=== PATIENT | female | born 1975 | race Hispanic/Latino ===

== ENCOUNTER 2018-02-13 02:07 | Emergency (ER) | payer OTHER ==
[~2018-02-13] VITALS: Ht 157.5 cm; Wt 73.5 kg
[~2018-02-13 02:07] MED LIST: IRON325 M1 PO; NORA-BE0.35 MG PO; TYLENOL WITH C1 EACH PO; ULTRAM 50MG50 MG PO
--- OUTSIDE RECORDS SUMMARY | 2018-02-13 02:10 | XMS REPORT | Summary of Care ---
Author Author LIU MOFFETT N.P. Organization Unknown Address [facility] Phone Unavailable Care Team Providers Care Stonecutter Assistant Name Role Phone LIU MOFFETT N.P. Unavailable Unavailable Unavailable Unavailable Functional Status Name Dates Details Functional status health issues are not documented Status: Name Dates Details Cognitive status health issues are not documented Status: Problems Name Dates Details Encounter for insertion of mirena IUD (V25.11, Z30.430) Status: Active Menorrhagia (626.2, N92.0) Status: Active IUD check up (V25.42, Z30.431) Status: Active Medications Name Dates Details PredniSONE 20 MG Oral Tablet * Start : 01-May-2017 Active Vitamin B12 TABS * Refills: 0 Active Xarelto 20 MG Oral Tablet * Refills: 0 * Start : 01-May-2017 Active Mirena 20 MCG/24HR Intrauterine Intrauterine Device * Refills: 0 LIU MOFFETT N.P. * Start : 29-May-2017 Active Allergies and Adverse Reactions Name Dates Details Demerol TABS (Allergy) Status: Active Rocephin (Allergy) Status: Active Sulfa Drugs (Allergy) Status: Active tramadol (Allergy) Status: Active vancomycin (Allergy) Status: Active Past Medical History Name Dates Details History of anemia (V12.3, Z86.2) Status: Resolved History of Arthritis (716.90, M19.90) Status: Resolved History of blood clots (V12.51, Z86.718) Status: Resolved History of blood transfusion (V15.89, Z92.89) Status: Resolved History of Common migraine without aura (346.10, G43.009) Status: Resolved History of deep venous thrombosis (V12.51, Z86.718) Status: Resolved History of pulmonary embolism (V12.55, Z86.711) Status: Resolved Procedures Procedure Dates Details History of Cholecystectomy Completed History of Tubal Ligation Completed History of knee arthroscopy Completed History of Maurice-en-Y gastric bypass Completed History of section Completed History of exploratory laparotomy Completed History of hernia repair Completed History of abdominoplasty Completed Immunization Name Dates Details Immunizations not documented Family History Name Dates Details Family history of depression (V17.0, Z81.8) Status: Active Social History Name Dates Details - Status: Name Dates Details Never smoker Vital Signs Date Test Result Details [id number] BP Systolic 104 mm[Hg] Status: Comments: Location: LUE; Position: Sitting BP Diastolic 60 mm[Hg] Status: Comments: Location: LUE; Position: Sitting Height 62 in Status: Weight 178.4 lb Status: Body Mass Index Calculated 32.63 kg/m2 Status: Body Surface Area Calculated 1.82 m2 Status: [id number] BP Systolic 110 mm[Hg] Status: Comments: Location: RUE; Position: Sitting BP Diastolic 68 mm[Hg] Status: Comments: Location: RUE; Position: Sitting Height 62 in Status: Weight 170 lb Status: Body Mass Index Calculated 31.09 kg/m2 Status: Body Surface Area Calculated 1.78 m2 Status: Results Date Description Value Details [id number] Tobacco Use Screening Completed DONE Plan of Care Name Dates Details Planned Observations Planned Goals not documented Planned Encounters Appointment; DEANN ELMORE M.D. On: 11-Jul-2017 10:50 Interventions Provided Discussion/Summary* Pt desires to continue with mirena for now to see if future periods get any swatch maker. F/u 6 weeks with [facility] to discuss periods or ablation if no improvement. Instructions Name Dates Details Instructions not documented Encounters Appointment; DEANN ELMORE M.D. Encounter Diagnosis: Problem not documented On: 01-May-2017 13:00 Appointment; LIU MOFFETT NP Encounter Diagnosis: Problem not documented On: 29-May-2017 10:30
--- NOTE | 2018-02-13 02:52 | Diagnostic Imaging Report ---
CHEST 2 VIEWS, Technique: CHEST 2 VIEWS Comparison: None Clinical history: Fever, cough DISCUSSION: Borderline heart size. Otherwise unremarkable appearance of the heart, mediastinum, lungs and pleural spaces. IMPRESSION: No acute abnormality Signed by: Dr Ruth Ann Alvarado MD on 02/13/2018 2:48 AM
[2018-02-13 03:17] LABS: INFLUENZAE A&B ANTIGEN (RAPID) NEGATIVE (NEGATIVE)
[2018-02-13 03:18] LABS: STREPTOCOCCUS GRP A ANTIGEN NEGATIVE (NEGATIVE)
[2018-02-13 03:33] VITALS: BP 119/80
[2018-02-13] MEDS ORDERED: ACETAMINOPHEN/CODEINE 300MG - 30MG TAB PO ONE (04:15)
== END 2018-02-13 04:29 | disposition home or self-care (01) ==
LOC: ER 02:07
DX: R50.9 Fever, unspecified (principal); R05 Cough; J20.9 Acute bronchitis, unspecified
CPT/HCPCS: 71046; 83518; 87070; 87400; 99283